=== PATIENT | male | born 1990 | race Asian ===

== ENCOUNTER → 2016-08-25 | Outpatient (CLI) | payer OTHER ==
--- NOTE | ~2016-08-25 | CR242 ---
[facility] A Service of [facility] RADIOLOGY TEXT RESULTS PATIENT: CHARITY WHITE LOCATION: [facility] : [birth year] UNIT #: [id number] AGE: [address]: Jhoana Blakely APRN SEX: M ORDER DR: [id number] [facility] [address] [place], [place] [address] [id number] O MR#: [id number] Acc #: [id number] NAME: CHARITY WHITE : 1990 SEX: M STUDY DATE/TIME: 08/25/2016 10:51 UNIT: [facility] ROOM: STUDY DESCRIPTION: CR Thoracic Spine 2 Views Attending Physician: Jhoana Blakely A.P.R.N. Referring Physician: Jhoana Blakely A.P.R.N. Ordering Physician: Jhoana Blakely A.P.R.N. Primary Care Physician: Jhoana Blakely A.P.R.N. MEDICAL IMAGING REPORT This report is preliminary unless electronic signature is present EXAM 3 views of the thoracic spine, 08/25/2016 HISTORY 26-year-old male with complaints of lower back pain for 2 months. No documented injury. COMPARISON None FINDINGS AP and lateral examination of the dorsal segment shows normal mineralization and a satisfactory anatomical dorsal kyphosis. All body heights, interspaces, and posterior elements are normal anatomically without any indication of malignancy, trauma, unusual paraspinal soft tissue density mass, or congenital defect. IMPRESSION Normal thoracic spine. Dictated by... Margi Dodson M.D. THIS IS AN ELECTRONICALLY VERIFIED REPORT Margi Dodson M.D. at 08/28/2016 8:30 AM Joesph TD: 08/25/2016 16:13 JOB #: [id number] MEDICAL IMAGING REPORT Page 1 of 1 COPY
--- NOTE | ~2016-08-25 | CR181 ---
[facility] A Service of [facility] RADIOLOGY TEXT RESULTS PATIENT: CHARITY WHITE LOCATION: [facility] : [birth year] UNIT #: [id number] AGE: [address]: Jhoana Blakely APRN SEX: M ORDER DR: [id number] [facility] [address] [place], [place] [address] [id number] O MR#: [id number] Acc #: [id number] NAME: CHARITY WHITE : 1990 SEX: M STUDY DATE/TIME: 08/25/2016 10:53 UNIT: [facility] ROOM: STUDY DESCRIPTION: CR Lumbar Spine 2 or 3 Views Attending Physician: Jhoana Blakely A.P.R.N. Referring Physician: Jhoana Blakely A.P.R.N. Ordering Physician: Jhoana Blakely A.P.R.N. Primary Care Physician: Jhoana Blakely A.P.R.N. MEDICAL IMAGING REPORT This report is preliminary unless electronic signature is present EXAM 3 views of the lumbar spine DATE 08/25/2016 HISTORY Low back pain for 2 months. No documented injury. COMPARISON None FINDINGS AP and lateral projections of the lumbar segment show good mineralization of both anterior and posterior elements. They are all anatomically normal without indication of fracture, dislocation, or malignant change of a sclerotic or lytic type. There is no congenital defect noted. The sacroiliac joints are normal. IMPRESSION Normal lumbar spine. Dictated by... Margi Dodson M.D. THIS IS AN ELECTRONICALLY VERIFIED REPORT Margi Dodson M.D. at 08/28/2016 8:30 AM Lou TD: 08/25/2016 16:21 JOB #: [id number] MEDICAL IMAGING REPORT [facility] A Service [facility] RADIOLOGY TEXT RESULTS PATIENT: CHARITY WHITE LOCATION: [facility] : [birth year] UNIT #: [id number] AGE: [address]: Jhoana Blakely APRN SEX: M ORDER DR: Page 1 of 1 COPY
== END | disposition home or self-care (01) ==
LOC: CRAD 09:52
DX: M54.5 Low back pain (principal)
CPT/HCPCS: 72070; 72100